=== PATIENT | male | born 1940 | race Caucasian/White ===

== ENCOUNTER 2022-07-04 07:12 | Observation (INO) ==
[2022-07-04] MEDS ORDERED: INFLUENZA VACCINE HIGH DOSE PF 65+ 0.7 ML SYR IM ONE (19:10)
[2022-07-04] MEDS ORDERED: ONDANSETRON INJ 2 MG/ML 2 ML VIAL IV PRN (19:52)
[2022-07-04] MEDS ORDERED: ACETAMINOPHEN 325 MG TAB PO PRN (19:52)
[2022-07-04] MEDS ORDERED: ALBUTEROL HFA 8 GM INHALER INH PRN (20:29)
[2022-07-04] MEDS ORDERED: PIPERACILLIN/TAZOBACTAM 3.375 GM in DEXTROSE 5% 100 ML IV ONE (20:30)
[2022-07-04 20:53] LABS: INR 1.2 (0.9-1.1); Prothrombin Time 12.4 Seconds (9.0-12.0)
[2022-07-04] MEDS: dilTIAZem HCL 120 MG CAPCR PO SCH (21:08)
[2022-07-04] MEDS: BUMETANIDE 1 MG TAB PO SCH (21:08)
[2022-07-04 21:10] LABS: Albumin Level 3.9 gm/dl (3.4-5.0); BUN Creatinine Ratio 20.9 (10-20); Bilirubin,Total 3.1 mg/dl (0.2-1.0); Calcium 8.5 mg/dl (8.5-10.1); Creatinine Clr Calc Pharmacy 27.8 ml/min; Est GFR (African American) 32.3 ml/min; Est GFR (Non-African American) 27.9 ml/min; Magnesium 2.4 mg/dl (1.7-2.4); Phosphorus 4.3 mg/dl (2.5-4.9); Potassium 3.8 mmol/L (3.5-5.1); Total Protein 5.9 gm/dl (6.0-8.3)
[2022-07-04 21:14] LABS: Basophils # (auto) 0.01 K/uL (0-0.2); Basophils % (auto) 0.1 %; Eosinophils # (auto) 0.01 K/uL (0-0.50); Eosinophils % (auto) 0.1 %; Hematocrit (blood only) 24.2 % (40.1-51.0); Hemoglobin 7.7 g/dl (14.0-18.0); Immature Granulocytes # (auto) 0.11 K/uL (0.00-0.02); Immature Granulocytes % (auto) 0.9 %; Lymphocytes # (auto) 0.24 K/uL (1.2-3.4); Mean Corpuscular Hemoglobin 25.5 pg (25.0-34.0); Mean Corpuscular Hgb Conc 31.8 g/dL (32.0-36.0); Mean Corpuscular Volume 80.1 fL (80.0-100.0); Mean Platelet Volume 9.9 fL (9.4-12.4); Monocytes # (auto) 0.98 K/uL (0.24-0.82); Monocytes % (auto) 8.1 %; Neutrophils # (auto) 10.73 K/uL (1.4-6.5); Neutrophils % (auto) 88.8 %; Nucleated RBC # (auto) 0.23 K/uL (0-0); Nucleated RBC % (auto) 1.9 %; Platelet Count 321 K/uL (130-400); RDW Coefficient of Variation 16.9 % (11.5-14.5); RDW Standard Deviation 49.1 fL (36.4-46.3); Red Blood Count 3.02 M/uL (4.63-6.08); White Blood Count 12.08 K/ul (4.8-10.8)
[2022-07-04 21:43] LABS: Troponin I High Sensitivity 176.4 pg/ml (0-20)
[2022-07-04] MEDS ORDERED: SODIUM CHLORIDE 0.9% 250 ML IV PRN (21:47)
[2022-07-04 22:24] LABS: Hypochromasia Present; Polychromasia 1+
--- NOTE | 2022-07-04 22:24 | History & Physical Report ---
Date of Service July 04, 2022 Assessment & Plan (1) Anemia: Plan: Surjit Hernandez is an 82yo male with history of atrial fibrillation on Xarelto anticoagulation who presented to outside facility with acute hypoxic respiratory failure in setting of removal of home oxygen. Found to have anemia with Hgb of 4.1. Patient does endorse several weeks of black, tarry stools as well as progressive SOB. He was transfused 3u PRBCs at outside facility prior to transfer with adequate response in H/H. Presently 7.7. -Telemetry monitoring -Maintain 2 large PIV -Will transfuse 1 additional unit given patient's elevation of troponin - consent signed, witness and in chart -Protonix 40mg IV BID -GI consultation appreciated -Repeat CBC in AM -Hold Xarelto (2) Elevated troponin: Plan: HS troponin elevated. Patient denies chest pain. Suspect supply-demand mismatch in setting of hypoxemia, possible CHF -Trend troponin -Check 2D echo in AM (3) Diverticulitis: Plan: CT of the abdomen obtained at outside facility revealed acute, uncomplicated diverticulitis. Patient denies abdominal pain, vomiting, fever. -Zosyn 3.375gm IV q 6 -Patient will need followup colonoscopy in 6-8 weeks (4) Atrial fibrillation: Plan: Patient V-paced at 73. On Diltiazem for rate control and Xarelto anticoagulation. -Continue Diltiazem at home dose - 240mg po qAM and 120mg po qHS -Hold Xarelto for now given suspicion for acute bleed -Monitor (5) CHF (congestive heart failure): Plan: Patient appears volume overloaded on CXR, elevation of BNP, elevation of troponin possibly secondary to strain as well -Bumex 1mg IV after transfusion and spot dosing IV as needed -Resume oral Bumex at home dose after -Monitor I/Os -Daily weights -Continue Spironolactone -Checking 2D echo in setting of elevated troponin (6) COPD (chronic obstructive pulmonary disease): Plan: SOB improved, no wheeze -Duonebs -Continue Albuterol PRN -Supplemental O2 (7) GERD (gastroesophageal reflux disease): Plan: Chronic. Patient denies abdominal pain or epigastric discomfort. -Protonix 40mg IV BID as above for concern for possible bleed (8) Depression: Plan: Chronic -Continue Duloxetine (9) CKD (chronic kidney disease): Plan: Elevation of BUN and Cr. Baseline appx 1.8 -Monitor renal function -Avoid nephrotoxic agents -Renal dosing where needed F/E/N - Heplock. Gentle diuresis. Monitor electrolytes. Clear liquid diet Ppx - SCDs Code - Full per discussion with patient Dispo - Admit to PCU Admission and Anticipated Discharge Date Admission Date: July 04, 2022 History of Present Illness Chief Complaint: transfer from outside facility complaint of anemia Primary Care Provider: Pepe Selby Surjit Hernandez is an 82yo male with history of atrial fibrillation on Xarelto anticoagulation, pacemaker in place, CHF, COPD - on home O2 4L for the last 2-4 weeks, GERD and CKD. Patient removed his oxygen earlier today and was unable to get it back on. He developed some respiratory distress and became confused and his called EMS. Per report, patient hypoxic by EMS with saturations in the 60's. He was placed on supplemental O2 with improvement in saturations and was taken to [facility]. Workup in [place] revealed elevated WBC of 13, Hgb of 4.1. HS-troponin of 116 and BNP of 7767. His Cr was 2.1 with baseline of approximately 1.8 Per ER - Tarry stools noted on exam, Heme POSITIVE He had a CT of the abdomen that revealed acute, uncomplicated sigmoid diverticulitis as well as a right pleural effusion with associated atelectasis and appearance of CHF. Covid and Influenza testing NEGATIVE Patient was transfused with 3 units of PRBCs and was given Lasix 20mg IV as well as Kdur 20mEq He was given Ciprofloxacin 400mg IV and Flagyl 500mg IV for finding of acute diverticulitis He was given Protonix 40mg IV for suspected GIB He was given a DuoNeb treatment and Solumedrol 125mg IV Patient was transferred to [facility] for GI evaluation, concern for GIB. Patient was placed in room 220-1. During my encounter he has no acute complaints, specifically denying fever, chest pain, palpitations, abdominal pain, nausea, vomiting and diarrhea. He denies dizziness, syncope or exertional symptoms. He reports his appetite is intact and he eats well at home. No epigastric pain or heartburn symptoms. He does report a chronic cough productive for non-purulent sputum as well as worsening shortness of breath over the last 2-3 weeks. No urinary complaints. He is hungry and is requesting something to eat. He does endorse several weeks (appx 3-4) of dark, tarry stools. He had a screening colonoscopy performed 3-4 years ago which he reports as normal. Allergies Allergy/AdvReac Type Severity Reaction Status Date / Time TANI Inhibitors AdvReac Mild cough Verified 07/04/22 22:24 Home Medications Medication Instructions Recorded Confirmed Type acetaminophen 500 mg tablet 500 mg PO Q6H PRN Pain 07/04/22 07/04/22 History albuterol sulfate 90 mcg/actuation 2 puff inhalation .Q4-6H PRN 07/04/22 07/04/22 History aerosol inhaler Shortness Of Breath ascorbic acid (vitamin C) 500 mg 500 mg PO DAILY 07/04/22 07/04/22 History tablet bumetanide 2 mg tablet 2 mg PO MOWEFR PRN Fluid Retention 07/04/22 07/04/22 History bumetanide 2 mg tablet 2 mg PO SUTUTHSA 07/04/22 07/04/22 History calcitriol 0.25 mcg capsule 0.25 mcg PO DAILY 07/04/22 07/04/22 History cholecalciferol (vitamin D3) 25 25 mcg PO DAILY 07/04/22 07/04/22 History mcg (1,000 unit) tablet (Vitamin D3) diltiazem HCl 120 mg 120 mg PO HS 07/04/22 07/04/22 History capsule,extended release 24 hr diltiazem HCl 120 mg 240 mg PO QAM 07/04/22 07/04/22 History capsule,extended release 24 hr duloxetine 60 mg capsule,delayed 60 mg PO QAM 07/04/22 07/04/22 History release fluticasone propionate 50 2 spray intranasal DAILY 07/04/22 07/04/22 History mcg/actuation nasal spray,suspension magnesium oxide 800 mg PO BID 07/04/22 07/04/22 History omeprazole 20 mg tablet,delayed 20 mg PO BID 07/04/22 07/04/22 History release potassium chloride 10 mEq 40 meq PO DAILY 07/04/22 07/04/22 History capsule,extended release rivaroxaban 20 mg tablet (Xarelto) 20 mg PO DAILY 07/04/22 07/04/22 History spironolactone 25 mg tablet 25 mg PO DAILY 07/04/22 07/04/22 History Past Med/Surg History Medical History (Updated 07/04/22 @ 22:37 by Polina Zimmer DO) Atrial fibrillation CHF (congestive heart failure) CKD (chronic kidney disease) COPD (chronic obstructive pulmonary disease) On home O2 4L Depression GERD (gastroesophageal reflux disease) Hiatal hernia Surgical History (Updated 07/04/22 @ 22:27 by Polina Zimmer DO) H/O neck surgery History of knee replacement History of thyroid surgery Pacemaker Family History (Updated 07/04/22 @ 22:27 by Polina Zimmer DO) Other Cancer Social History Smoking Status: Former smoker Hx Alcohol Use: Yes Alcohol type: beer, wine and hard liquor Hx Substance Use: No Preferred Language: Yoruba Communication Ability: Effective Hydrogen Operator Required: No Beliefs That Will Affect Care: None Current Living Situation: Spouse Other Information That Helps Us Care for You: No Feels Safe at Home: Yes Safety Concerns: Feels Safe At This Time Assistive Devices: Cane and Walker Review of Systems Review of Systems: All systems reviewed & are unremarkable except as noted in HPI & below Physical Exam Physical Exam: General: patient resting comfortably, NAD, non-toxic in appearance, AA&O x 4, NC in place Skin: warm, dry, intact, no rashes or lesions HEENT: NC/AT, PERRL, EOMI, anicteric sclera, conjunctiva without injection, external ear normal to inspection and nontender, nares patent, moist mucus membranes, dentition intact, no oropharyngeal lesions, neck supple, trachea midline, no LAD, no thyromegaly, no JVD Heart: +S1/S2, regular, no m/r/g, pacer in place left chest Lungs: equal air entry bilaterally, crackles in bilateral bases, no rhonchi/wheezes Abd: +BS, soft, NT/ND, no masses/organomegaly/ascites Ext: warm, 2+ pulses in UE/LE bilaterally, no clubbing/cyanosis or edema Neuro: nonfocal, patient AA&O x 4, speech intact, no facial droop, moving all extremities on command with equal strength 5/5 Results & Data Results & Data ([facility]) Vital Signs (Past 12 Hours) Vital Signs Temp Pulse Pulse Resp BP Pulse Ox O2 Del Method 07/04/22 18:59 77 07/04/22 19:00 Nasal Cannula 07/04/22 18:56 36.7 C 71 18 164/73 H 97 Nasal Cannula 07/04/22 18:47 36.7 C 71 18 164/73 H 97 Nasal Cannula O2 Flow Rate 07/04/22 18:59 07/04/22 19:00 5 07/04/22 18:56 5 07/04/22 18:47 5 Laboratory Results Laboratory Results WBC 12.08 K/ul (4.8-10.8) H 07/04/22 20: RBC 3.02 M/uL (4.63-6.08) L 07/04/22 20: Hgb 7.7 g/dl (14.0-18.0) L 07/04/22 20: Hct 24.2 % (40.1-51.0) L 07/04/22 20: MCV 80.1 fL (80.0-100.0) 07/04/22 20: MCH 25.5 pg (25.0-34.0) 07/04/22 20: MCHC 31.8 g/dL (32.0-36.0) L 07/04/22 20: RDW Std Deviation 49.1 fL (36.4-46.3) H 07/04/22 20: RDW Coeff of Dony 16.9 % (11.5-14.5) H 07/04/22 20: Plt Count 321 K/uL (130-400) 07/04/22 20: MPV 9.9 fL (9.4-12.4) 07/04/22 20: Immature Gran % (Auto) 0.9 % 07/04/22 20: Neut % (Auto) 88.8 % 07/04/22 20: Lymph % (Auto) 2.0 % 07/04/22 20: Alexander % (Auto) 8.1 % 07/04/22 20: Eos % (Auto) 0.1 % 07/04/22 20: Baso % (Auto) 0.1 % 07/04/22 20: Neut # (Auto) 10.73 K/uL (1.4-6.5) H 07/04/22 20: Lymph # (Auto) 0.24 K/uL (1.2-3.4) L 07/04/22 20:23 Alexander # (Auto) 0.98 K/uL (0.24-0.82) H 07/04/22 20: Eos # (Auto) 0.01 K/uL (0-0.50) 07/04/22 20:23 Baso # (Auto) 0.01 K/uL (0-0.2) 07/04/22 20: Immature Gran # (Auto) 0.11 K/uL (0.00-0.02) H 07/04/22 20: Absolute Nucleated RBC 0.23 K/uL (0-0) H 07/04/22 20: Nucleated RBC % (auto) 1.9 % 07/04/22 20: Polychromasia 1+ 07/04/22 20: Hypochromasia Present 07/04/22 20: PT 12.4 Seconds (9.0-12.0) H 07/04/22 20: INR 1.2 (0.9-1.1) H 07/04/22 20: Sodium 140 mmol/L (136-145) 07/04/22 20: Potassium 3.8 mmol/L (3.5-5.1) 07/04/22 20: Chloride 98 mmol/L (98-107) 07/04/22 20: Carbon Dioxide 34 mmol/L (21-32) H 07/04/22 20: Anion Gap 8 (3-11) 07/04/22 20: BUN 44 mg/dl (6-23) H 07/04/22 20: Creatinine 2.11 mg/dl (0.6-1.4) H 07/04/22 20: Est Cr Clr Drug Dosing 27.8 ml/min 07/04/22 20:23 Est GFR ( Amer) 32.3 ml/min 07/04/22 20: Est GFR (Non-Af Amer) 27.9 ml/min 07/04/22 20: BUN/Creatinine Ratio 20.9 (10-20) H 07/04/22 20: Glucose 138 mg/dl (70-99(Fasting)) H 07/04/22 20:23 Calcium 8.5 mg/dl (8.5-10.1) 07/04/22 20:23 Phosphorus 4.3 mg/dl (2.5-4.9) 07/04/22 20:23 Magnesium 2.4 mg/dl (1.7-2.4) 07/04/22 20:23 Total Bilirubin 3.1 mg/dl (0.2-1.0) H 07/04/22 20:23 AST 22 U/L (13-39) 07/04/22 20:23 ALT 34 U/L (7-52) 07/04/22 20:23 Alkaline Phosphatase 51 U/L (34-104) 07/04/22 20:23 Troponin I High Sens 176.4 pg/ml (0-20) H* 07/04/22 20:23 B-Natriuretic Peptide 1053 pg/ml (0-100) H 07/04/22 20:23 Total Protein 5.9 gm/dl (6.0-8.3) L 07/04/22 20:23 Albumin 3.9 gm/dl (3.4-5.0) 07/04/22 20:23 Globulin 2.0 gm/dl (2.5-4.0) L 07/04/22 20:23 Albumin/Globulin Ratio 2.0 (0.9-2) 07/04/22 20:23 Diagnostic Findings CXR - by my interpretation - image with appearance of pulmonary edema, ECG Additional Comments: EKG with V paced rhythm at 73bpm, PVCs, no acute ischemic changes Code Status & VTE Plan VTE Prophylaxis Plan VTE Prophylaxis will be ordered: Yes PG Care Time/CCT Total # of Minutes Spent Total Time Spent with Patient: Total time spent is greater than 50% in coordination of care (as documented) at patient's floor/unit and/or counseling patient: Coding Level of Care Code 03136 Initial Inpt Care Lvl 3 Diagnoses Anemia D64.9 Elevated troponin R77.8 Diverticulitis K57.92 Atrial fibrillation I48.91 CHF (congestive heart failure) I50.9 COPD (chronic obstructive pulmonary disease) J44.9 GERD (gastroesophageal reflux disease) K21.9 Depression F32.A CKD (chronic kidney disease) N18.9
[2022-07-04] MEDS ORDERED: ALBUT/IPRATROP 3MG/0.5MG NEB 3 ML VIAL NEB PRN (22:43)
[2022-07-04] MEDS ORDERED: PANTOprazole 40 MG in SYRINGE 0 ML IV ONE (22:45)
[2022-07-04] MEDS ORDERED: BUMETANIDE 1 MG in SYRINGE 0 ML IV ONE (23:00)
[2022-07-05] MEDS: MELATONIN 3 MG TAB PO PRN (00:56)
[2022-07-05] MEDS ORDERED: Nursing to Pharmacy Communication SCH (01:45)
[2022-07-05] MEDS: PIPERACILLIN/TAZOBACTAM 3.375 GM in DEXTROSE 5% 100 ML IV SCH ×3 (03:09→20:23)
--- NOTE | 2022-07-05 07:06 | XRay Report ---
XR chest 1V portable CLINICAL HISTORY: admission TECHNIQUE: Single frontal radiograph of the chest was obtained. Comparison: Comparison is made to chest radiograph 06/09/2012 FINDINGS: Implanted pacemaker is seen. Cardiomegaly is noted. Prominence and cephalization of the vasculature i s seen. No evidence of pleural effusion or pneumothorax. IMPRESSION: Cardiomegaly with mild pulmonary edema. ACT 112: Negative or not required by law. Electronically signed by: Hans Garibay M.D. 07/05/2022 7:04 AM
--- NOTE | 2022-07-05 08:14 | Electrocardiogram Report ---
Test Reason : Blood Pressure : / mmHG Vent. Rate : 073 BPM Atrial Rate : 093 BPM P-R Int : 000 ms QRS Dur : 136 ms QT Int : 438 ms P-R-T Axes : 000 144 208 degrees QTc Int : 482 ms Poor data quality, interpretation may be adversely affected Ventricular-paced rhythm with occasional Premature ventricular complexes Underlying rhythm likely Atrial fibrillation Abnormal ECG When compared with ECG of 04-JUL-2022 21:26, Electronic ventricular pacemaker now present Confirmed by Luis Daniel Munoz ([id number]) on 07/05/2022 8:14:15 AM Referred By: Polina Zimmer Confirmed By:Luis Daniel Munoz
[2022-07-05] MEDS: SPIRONOLACTONE 25 MG TAB PO SCH (08:26)
[2022-07-05] MEDS: PANTOprazole 40 MG in SYRINGE 0 ML IV SCH ×2 (08:26→20:23)
[2022-07-05] MEDS: CALCITRIOL 0.25 MCG CAPSULE PO SCH (08:26)
[2022-07-05] MEDS: dilTIAZem HCL 240 MG CAPCR PO SCH (08:26)
[2022-07-05] MEDS: DULoxetine HCL 60 MG CAP PO SCH (08:26)
[2022-07-05] MEDS: FLUTICASONE PROPIONATE NA SPR 16 GM BTL SCH (08:27)
[2022-07-05] MEDS ORDERED: PANTOprazole 40 MG TAB PO SCH (09:00)
[2022-07-05 09:16] LABS: Basophils # (auto) 0.01 K/uL (0-0.2); Basophils % (auto) 0.1 %; Hematocrit (blood only) 25.1 % (40.1-51.0); Hemoglobin 8.1 g/dl (14.0-18.0); Immature Granulocytes # (auto) 0.17 K/uL (0.00-0.02); Immature Granulocytes % (auto) 1.1 %; Lymphocytes % (auto) 2.5 %; Mean Corpuscular Hemoglobin 25.7 pg (25.0-34.0); Mean Corpuscular Hgb Conc 32.3 g/dL (32.0-36.0); Mean Corpuscular Volume 79.7 fL (80.0-100.0); Mean Platelet Volume 9.5 fL (9.4-12.4); Monocytes # (auto) 1.45 K/uL (0.24-0.82); Neutrophils % (auto) 87.3 %; Nucleated RBC # (auto) 0.08 K/uL (0-0); Nucleated RBC % (auto) 0.5 %; Platelet Count 284 K/uL (130-400); RDW Coefficient of Variation 16.4 % (11.5-14.5); RDW Standard Deviation 46.7 fL (36.4-46.3); Red Blood Count 3.15 M/uL (4.63-6.08); White Blood Count 16.03 K/ul (4.8-10.8)
--- NOTE | 2022-07-05 10:49 | XCELERA ---
[id number]
[2022-07-05 11:05] LABS: Albumin Level 3.6 gm/dl (3.4-5.0); BUN Creatinine Ratio 19.7 (10-20); Bilirubin Direct 0.5 mg/dl (0-0.2); Bilirubin,Total 1.6 mg/dl (0.2-1.0); Calcium 8.3 mg/dl (8.5-10.1); Creatinine Clr Calc Pharmacy 32.1 ml/min; Est GFR (African American) 34.9 ml/min; Est GFR (Non-African American) 30.1 ml/min; Globulin 1.8 gm/dl (2.5-4.0); Potassium 3.2 mmol/L (3.5-5.1); Total Protein 5.4 gm/dl (6.0-8.3)
--- NOTE | 2022-07-05 15:46 | Gastrointestinal Consultation ---
Date of Consultation July 05, 2022 Assessment & Plan (1) Anemia: Fairly significant anemia on xarelto. He took a dose yesterday so we will plan EGD. He has no reason to have bleeding other than his diverticulitis but would expect more red blood with that. Discussed procedure and risks for eGD with him, he agrees. I will let him have an early clear liquid breakfast. (2) Diverticulitis: On treatment per Dr. Zimmer History of Present Illness Reason for Consultation: anemia Requesting Physician: Polina Zimmer Attending Physician: Layo Lee DO History of Present Illness 82 year old man admitted with SOB and noted to have hemoglobin of 4.1. He has been having black stools for three weeks he says. He takes xarelto but denies taking NSAIDs. He had no abdominal pain. He denies heartburn or indigestion. He does take omeprazole for a "hiatal hernia". He had an EGD "2-3 years ago" when he had his last colonoscopy. He has an EGD set up for next week as an outpatient that he arranged of his own volition. He was incidentally diagnosed with acute diverticulitis on CT on admit although he denies pain related to that. Allergies Allergy/AdvReac Type Severity Reaction Status Date / Time TANI Inhibitors AdvReac Mild cough Verified 07/04/22 22:24 Home Medications Medication Instructions Recorded Confirmed Type acetaminophen 500 mg tablet 500 mg PO Q6H PRN Pain 07/04/22 07/04/22 History albuterol sulfate 90 mcg/actuation 2 puff inhalation .Q4-6H PRN 07/04/22 07/04/22 History aerosol inhaler Shortness Of Breath ascorbic acid (vitamin C) 500 mg 500 mg PO DAILY 07/04/22 07/04/22 History tablet bumetanide 2 mg tablet 2 mg PO MOWEFR PRN Fluid Retention 07/04/22 07/04/22 History bumetanide 2 mg tablet 2 mg PO SUTUTHSA 07/04/22 07/04/22 History calcitriol 0.25 mcg capsule 0.25 mcg PO DAILY 07/04/22 07/04/22 History cholecalciferol (vitamin D3) 25 25 mcg PO DAILY 07/04/22 07/04/22 History mcg (1,000 unit) tablet (Vitamin D3) diltiazem HCl 120 mg 120 mg PO HS 07/04/22 07/04/22 History capsule,extended release 24 hr diltiazem HCl 120 mg 240 mg PO QAM 07/04/22 07/04/22 History capsule,extended release 24 hr duloxetine 60 mg capsule,delayed 60 mg PO QAM 07/04/22 07/04/22 History release fluticasone propionate 50 2 spray intranasal DAILY 07/04/22 07/04/22 History mcg/actuation nasal spray,suspension magnesium oxide 800 mg PO BID 07/04/22 07/04/22 History omeprazole 20 mg tablet,delayed 20 mg PO BID 07/04/22 07/04/22 History release potassium chloride 10 mEq 40 meq PO DAILY 07/04/22 07/04/22 History capsule,extended release rivaroxaban 20 mg tablet (Xarelto) 20 mg PO DAILY 07/04/22 07/04/22 History spironolactone 25 mg tablet 25 mg PO DAILY 07/04/22 07/04/22 History Patient History Medical History Atrial fibrillation CHF (congestive heart failure) CKD (chronic kidney disease) COPD (chronic obstructive pulmonary disease) On home O2 4L Depression GERD (gastroesophageal reflux disease) Hiatal hernia Surgical History H/O neck surgery History of knee replacement History of thyroid surgery Pacemaker Family History Other Cancer Social History Smoking Status: Former smoker Hx Alcohol Use: Yes Alcohol type: beer, wine and hard liquor Hx Substance Use: No Preferred Language: Kosovan Communication Ability: Effective Manager Code Required: No Beliefs That Will Affect Care: None marital status: Current Living Situation: Spouse Other Information That Helps Us Care for You: No Feels Safe at Home: Yes Safety Concerns: Feels Safe At This Time Assistive Devices: Cane, Oxygen - Continuous and Walker Review of Systems Review of Systems: All systems reviewed & are unremarkable except as noted in HPI & below Physical Exam Constitutional: WD/WN, vitals as above no acute distress Eyes: PERRL, conjunctivae normal, anicteric sclerae ENMT: external ear and nose normal, oropharynx normal Neck: trachea midline, no thyromegaly Respiratory: normal respiratory effort, lungs clear to auscultation Cardiovascular: RRR, no murmur, no edema Gastrointestinal (Abdomen): normal bowel sounds, soft, nontender, no hepatosplenomegaly Musculoskeletal: Extremities: no cyanosis and no clubbing Skin: no rashes, warm and dry Neurologic: PERRL, EOMI, accommodation nl, no face palsy, no dysarthria Psychiatric: Orientation: alert and oriented x 3 Results & Data ([facility]) Vital Signs (Past 12 Hours) Vital Signs Temp Pulse Pulse Resp BP BP BP 07/05/22 14:47 36.6 C 70 18 157/71 H 07/05/22 10:28 36.5 C 68 18 165/59 H 07/05/22 07:35 71 07/05/22 07:35 07/05/22 06:59 36.5 C 68 18 160/65 H 07/05/22 04:44 36.5 C 70 20 139/65 07/05/22 04:45 36.5 C 70 20 139/65 07/05/22 04:36 36.6 C 70 18 157/72 H Pulse Ox O2 Del Method O2 Flow Rate 07/05/22 14:47 97 Nasal Cannula 3 07/05/22 10:28 98 Nasal Cannula 4 07/05/22 07:35 07/05/22 07:35 Nasal Cannula 5 07/05/22 06:59 99 Nasal Cannula 5 07/05/22 04:44 07/05/22 04:45 07/05/22 04:36 Laboratory Results 07/05/22 07/05/22 07/05/22 Range/Units 10:20 10:20 07:24 WBC 16.03 H (4.8-10.8) K/ul RBC 3.15 L (4.63-6.08) M/uL Hgb 8.1 L (14.0-18.0) g/dl Hct 25.1 L (40.1-51.0) % MCV 79.7 L (80.0-100.0) fL MCH 25.7 (25.0-34.0) pg MCHC 32.3 (32.0-36.0) g/dL RDW Std Deviation 46.7 H (36.4-46.3) fL RDW Coeff of Dony 16.4 H (11.5-14.5) % Plt Count 284 (130-400) K/uL MPV 9.5 (9.4-12.4) fL Immature Gran % (Auto) 1.1 % Neut % (Auto) 87.3 % Lymph % (Auto) 2.5 % [place] % (Auto) 9.0 % Eos % (Auto) 0.0 % Baso % (Auto) 0.1 % Neut # (Auto) 14.00 H (1.4-6.5) K/uL Lymph # (Auto) 0.40 L (1.2-3.4) K/uL [place] # (Auto) 1.45 H (0.24-0.82) K/uL Eos # (Auto) 0.00 (0-0.50) K/uL Baso # (Auto) 0.01 (0-0.2) K/uL Immature Gran # (Auto) 0.17 H (0.00-0.02) K/uL Absolute Nucleated RBC 0.08 H (0-0) K/uL Nucleated RBC % (auto) 0.5 % Polychromasia Hypochromasia PT (9.0-12.0) Seconds INR (0.9-1.1) Sodium 142 (136-145) mmol/L Potassium 3.2 L (3.5-5.1) mmol/L Chloride 99 (98-107) mmol/L Carbon Dioxide 37 H (21-32) mmol/L Anion Gap 6 (3-11) BUN 39 H (6-23) mg/dl Creatinine 1.98 H (0.6-1.4) mg/dl Est Cr Clr Drug Dosing 32.1 ml/min Est GFR ( Amer) 34.9 ml/min Est GFR (Non-Af Amer) 30.1 ml/min BUN/Creatinine Ratio 19.7 (10-20) Glucose 122 H (70-99(Fasting)) mg/dl Calcium 8.3 L (8.5-10.1) mg/dl Phosphorus (2.5-4.9) mg/dl Magnesium (1.7-2.4) mg/dl Total Bilirubin 1.6 H (0.2-1.0) mg/dl Direct Bilirubin 0.5 H (0-0.2) mg/dl AST 15 (13-39) U/L ALT 29 (7-52) U/L Alkaline Phosphatase 46 (34-104) U/L Troponin I High Sens 195.5 H* (0-20) pg/ml B-Natriuretic Peptide (0-100) pg/ml Total Protein 5.4 L (6.0-8.3) gm/dl Albumin 3.6 (3.4-5.0) gm/dl Globulin 1.8 L (2.5-4.0) gm/dl Albumin/Globulin Ratio 2.0 (0.9-2) Blood Type Blood Type Recheck Antibody Screen Crossmatch 07/05/22 07/04/22 07/04/22 Range/Units 07:21 23:03 20:23 WBC (4.8-10.8) K/ul RBC (4.63-6.08) M/uL Hgb (14.0-18.0) g/dl Hct (40.1-51.0) % MCV (80.0-100.0) fL MCH (25.0-34.0) pg MCHC (32.0-36.0) g/dL RDW Std Deviation (36.4-46.3) fL RDW Coeff of Dony (11.5-14.5) % Plt Count (130-400) K/uL MPV (9.4-12.4) fL Immature Gran % (Auto) % Neut % (Auto) % Lymph % (Auto) % [place] % (Auto) % Eos % (Auto) % Baso % (Auto) % Neut # (Auto) (1.4-6.5) K/uL Lymph # (Auto) (1.2-3.4) K/uL [place] # (Auto) (0.24-0.82) K/uL Eos # (Auto) (0-0.50) K/uL Baso # (Auto) (0-0.2) K/uL Immature Gran # (Auto) (0.00-0.02) K/uL Absolute Nucleated RBC (0-0) K/uL Nucleated RBC % (auto) % Polychromasia Hypochromasia PT (9.0-12.0) Seconds INR (0.9-1.1) Sodium (136-145) mmol/L Potassium (3.5-5.1) mmol/L Chloride (98-107) mmol/L Carbon Dioxide (21-32) mmol/L Anion Gap (3-11) BUN (6-23) mg/dl Creatinine (0.6-1.4) mg/dl Est Cr Clr Drug Dosing ml/min Est GFR ( Amer) ml/min Est GFR (Non-Af Amer) ml/min BUN/Creatinine Ratio (10-20) Glucose (70-99(Fasting)) mg/dl Calcium (8.5-10.1) mg/dl Phosphorus (2.5-4.9) mg/dl Magnesium (1.7-2.4) mg/dl Total Bilirubin (0.2-1.0) mg/dl Direct Bilirubin (0-0.2) mg/dl AST (13-39) U/L ALT (7-52) U/L Alkaline Phosphatase (34-104) U/L Troponin I High Sens 180.7 H* (0-20) pg/ml B-Natriuretic Peptide (0-100) pg/ml Total Protein (6.0-8.3) gm/dl Albumin (3.4-5.0) gm/dl Globulin (2.5-4.0) gm/dl Albumin/Globulin Ratio (0.9-2) Blood Type A Positive Blood Type Recheck A Positive Antibody Screen NEGATIVE Crossmatch See Detail 07/04/22 07/04/22 07/04/22 Range/Units 20:23 20:23 20:23 WBC (4.8-10.8) K/ul RBC (4.63-6.08) M/uL Hgb (14.0-18.0) g/dl Hct (40.1-51.0) % MCV (80.0-100.0) fL MCH (25.0-34.0) pg MCHC (32.0-36.0) g/dL RDW Std Deviation (36.4-46.3) fL RDW Coeff of Dony (11.5-14.5) % Plt Count (130-400) K/uL MPV (9.4-12.4) fL Immature Gran % (Auto) % Neut % (Auto) % Lymph % (Auto) % [place] % (Auto) % Eos % (Auto) % Baso % (Auto) % Neut # (Auto) (1.4-6.5) K/uL Lymph # (Auto) (1.2-3.4) K/uL [place] # (Auto) (0.24-0.82) K/uL Eos # (Auto) (0-0.50) K/uL Baso # (Auto) (0-0.2) K/uL Immature Gran # (Auto) (0.00-0.02) K/uL Absolute Nucleated RBC (0-0) K/uL Nucleated RBC % (auto) % Polychromasia Hypochromasia PT 12.4 H (9.0-12.0) Seconds INR 1.2 H (0.9-1.1) Sodium 140 (136-145) mmol/L Potassium 3.8 (3.5-5.1) mmol/L Chloride 98 (98-107) mmol/L Carbon Dioxide 34 H (21-32) mmol/L Anion Gap 8 (3-11) BUN 44 H (6-23) mg/dl Creatinine 2.11 H (0.6-1.4) mg/dl Est Cr Clr Drug Dosing 27.8 ml/min Est GFR ( Amer) 32.3 ml/min Est GFR (Non-Af Amer) 27.9 ml/min BUN/Creatinine Ratio 20.9 H (10-20) Glucose 138 H (70-99(Fasting)) mg/dl Calcium 8.5 (8.5-10.1) mg/dl Phosphorus 4.3 (2.5-4.9) mg/dl Magnesium 2.4 (1.7-2.4) mg/dl Total Bilirubin 3.1 H (0.2-1.0) mg/dl Direct Bilirubin (0-0.2) mg/dl AST 22 (13-39) U/L ALT 34 (7-52) U/L Alkaline Phosphatase 51 (34-104) U/L Troponin I High Sens 176.4 H* (0-20) pg/ml B-Natriuretic Peptide 1053 H (0-100) pg/ml Total Protein 5.9 L (6.0-8.3) gm/dl Albumin 3.9 (3.4-5.0) gm/dl Globulin 2.0 L (2.5-4.0) gm/dl Albumin/Globulin Ratio 2.0 (0.9-2) Blood Type Blood Type Recheck Antibody Screen Crossmatch 07/04/22 Range/Units 20:23 WBC 12.08 H (4.8-10.8) K/ul RBC 3.02 L (4.63-6.08) M/uL Hgb 7.7 L (14.0-18.0) g/dl Hct 24.2 L (40.1-51.0) % MCV 80.1 (80.0-100.0) fL MCH 25.5 (25.0-34.0) pg MCHC 31.8 L (32.0-36.0) g/dL RDW Std Deviation 49.1 H (36.4-46.3) fL RDW Coeff of Dony 16.9 H (11.5-14.5) % Plt Count 321 (130-400) K/uL MPV 9.9 (9.4-12.4) fL Immature Gran % (Auto) 0.9 % Neut % (Auto) 88.8 % Lymph % (Auto) 2.0 % [place] % (Auto) 8.1 % Eos % (Auto) 0.1 % Baso % (Auto) 0.1 % Neut # (Auto) 10.73 H (1.4-6.5) K/uL Lymph # (Auto) 0.24 L (1.2-3.4) K/uL [place] # (Auto) 0.98 H (0.24-0.82) K/uL Eos # (Auto) 0.01 (0-0.50) K/uL Baso # (Auto) 0.01 (0-0.2) K/uL Immature Gran # (Auto) 0.11 H (0.00-0.02) K/uL Absolute Nucleated RBC 0.23 H (0-0) K/uL Nucleated RBC % (auto) 1.9 % Polychromasia 1+ Hypochromasia Present PT (9.0-12.0) Seconds INR (0.9-1.1) Sodium (136-145) mmol/L Potassium (3.5-5.1) mmol/L Chloride (98-107) mmol/L Carbon Dioxide (21-32) mmol/L Anion Gap (3-11) BUN (6-23) mg/dl Creatinine (0.6-1.4) mg/dl Est Cr Clr Drug Dosing ml/min Est GFR ( Amer) ml/min Est GFR (Non-Af Amer) ml/min BUN/Creatinine Ratio (10-20) Glucose (70-99(Fasting)) mg/dl Calcium (8.5-10.1) mg/dl Phosphorus (2.5-4.9) mg/dl Magnesium (1.7-2.4) mg/dl Total Bilirubin (0.2-1.0) mg/dl Direct Bilirubin (0-0.2) mg/dl AST (13-39) U/L ALT (7-52) U/L Alkaline Phosphatase (34-104) U/L Troponin I High Sens (0-20) pg/ml B-Natriuretic Peptide (0-100) pg/ml Total Protein (6.0-8.3) gm/dl Albumin (3.4-5.0) gm/dl Globulin (2.5-4.0) gm/dl Albumin/Globulin Ratio (0.9-2) Blood Type Blood Type Recheck Antibody Screen Crossmatch Diagnostic Findings Chest X-Ray 07/04/22 19:57 XR chest 1V portable CLINICAL HISTORY: admission TECHNIQUE: Single frontal radiograph of the chest was obtained. Comparison: Comparison is made to chest radiograph 06/09/2012 FINDINGS: Implanted pacemaker is seen. Cardiomegaly is noted. Prominence and cephalization of the vasculature is seen. No evidence of pleural effusion or pneumothorax. IMPRESSION: Cardiomegaly with mild pulmonary edema. ACT 112: Negative or not required by law. Electronically signed by: Hans Garibay M.D. 07/05/2022 7:04 AM
--- NOTE | 2022-07-05 16:10 | Hospitalist Progress Note ---
Date of Service July 05, 2022 Assessment & Plan (1) Anemia: Plan: Surjit Hernandez is an 82yo male with history of atrial fibrillation on Xarelto anticoagulation who presented to outside facility with acute hypoxic respiratory failure in setting of removal of home oxygen. Found to have anemia with Hgb of 4.1. Patient does endorse several weeks of black, tarry stools as well as progressive SOB. He was transfused 3u PRBCs at outside facility prior to transfer with adequate response in H/H. Presently 8.1 -Telemetry monitoring -Maintain 2 large PIV -Will transfuse 1 additional unit given patient's elevation of troponin - consent signed, witness and in chart, given overnight. Hgb at 8.1 -Protonix 40mg IV BID -GI consultation appreciated- Will perform EGD to evaluate for upper GI bleed -Repeat CBC in AM -Hold Xarelto (2) Elevated troponin: Plan: HS troponin elevated. Patient denies chest pain. Suspect supply-demand mismatch in setting of hypoxemia, possible CHF -Trend troponin, peaked at 196 -Echo shows: "Ejection fraction of 45 to 50% with mild global hypokinesis with no focal wall motion abnormalities. Moderate left ventricular hypertrophy. Moderately dilated right heart with evidence of right ventricular hypertrophy and preserved systolic function. Mild aortic stenosis/regurgitation. Mild pulmonic insufficiency with normal pulmonary artery end-diastolic pressure. Moderate to severe mitral regurgitation with moderately dilated left atrium. Moderate tricuspid regurgitation with severe pulmonary hypertension and elevated central venous pressure." (3) Diverticulitis: Plan: CT of the abdomen obtained at outside facility revealed acute, uncomplicated diverticulitis. Patient denies abdominal pain, vomiting, fever. -Zosyn 3.375gm IV q 8...will convert to oral therapy post EGD -Patient will need followup colonoscopy in 6-8 weeks (4) Atrial fibrillation: Plan: Patient V-paced at 73. On Diltiazem for rate control and Xarelto anticoagulation. -Continue Diltiazem at home dose - 240mg po qAM and 120mg po qHS -Hold Xarelto for now given suspicion for acute bleed -Monitor (5) CHF (congestive heart failure): Plan: Patient appears volume overloaded on CXR, elevation of BNP, elevation of troponin possibly secondary to strain as well -Bumex 1mg IV after transfusion and spot dosing IV as needed -Resume oral Bumex at home dose after -Monitor I/Os -Daily weights -Continue Spironolactone -see echo results above (6) COPD (chronic obstructive pulmonary disease): Plan: SOB improved, no wheeze -Duonebs -Continue Albuterol PRN -Supplemental O2 (7) GERD (gastroesophageal reflux disease): Plan: Chronic. Patient denies abdominal pain or epigastric discomfort. -Protonix 40mg IV BID as above for concern for possible bleed (8) Depression: Plan: Chronic -Continue Duloxetine (9) CKD (chronic kidney disease): Plan: Elevation of BUN and Cr. Baseline appx 1.8 -Monitor renal function -Avoid nephrotoxic agents -Renal dosing where needed F/E/N - Heplock. Gentle diuresis. Monitor electrolytes. Clear liquid diet Ppx - SCDs, chemoprophylaxis contraindicated. Code - Full per discussion with patient Dispo - Admit to PCU Admission and Anticipated Discharge Date Admission Date: July 04, 2022 Supervising Physician Co-Signing Physician Notes I personally examined the patient and verified all garcia points of history and ex am, discussed case, and agree with decision making with Dr Vanegas Ongoing melena. No chest pain or shortness of breath. No weak or lightheaded. Vitals noted, in general he is awake and alert pleasant no distress. HEENT normocephalic atraumatic mucous membranes moist. Breathing unlabored no accessory muscle use good effort. Skin shows no rashes no pallor or icterus. Neuro without focal deficits. GI bleeding with acute blood loss anemiatransfused 4 unitshemoglobin now stable in the low to mid 8 range. Does seem to have ongoing bleeding given ongoing melena, hemodynamically stable. Follow closely. Await GI inputanticipate endoscopic work-up Otherwise as above Subjective Patient seen at bedside this morning. No acute events reported overnight. Patient received 4 units total in the past 24 hours of packed red blood cells. Denies any shortness of breath or chest pain. Reports he is overall feeling well but is simply hungry requesting food. States that for the past 3 weeks he has been having "black stools". Denies any bright red blood. Denies any epigastric/abdominal pain. Eating and drinking without difficulty. Otherwise no other complaints at this time. Review of Systems Review of Systems: All systems reviewed & are unremarkable except as noted in HPI & below Physical Exam Constitutional: WD/WN, vitals as above Eyes: + anicteric sclerae Neck: trachea midline, no thyromegaly Respiratory: normal respiratory effort, lungs clear to auscultation Cardiovascular: RRR, no murmur, no edema Gastrointestinal (Abdomen): normal bowel sounds, soft, nontender, no hepatosplenomegaly Musculoskeletal: Head/Neck/Chest: normocephalic and head atraumatic Skin: no rashes, warm and dry Neurologic: moves all extremities Psychiatric: A+Ox3, euthymic affect Results & Data Results & Data ([facility]) Vital Signs (Past 12 Hours) Vital Signs Temp Pulse Pulse Resp BP BP BP 07/05/22 14:47 36.6 C 70 18 157/71 H 07/05/22 10:28 36.5 C 68 18 165/59 H 07/05/22 07:35 71 07/05/22 07:35 07/05/22 06:59 36.5 C 68 18 160/65 H 07/05/22 04:44 36.5 C 70 20 139/65 07/05/22 04:45 36.5 C 70 20 139/65 07/05/22 04:36 36.6 C 70 18 157/72 H Pulse Ox O2 Del Method O2 Flow Rate 07/05/22 14:47 97 Nasal Cannula 3 07/05/22 10:28 98 Nasal Cannula 4 07/05/22 07:35 07/05/22 07:35 Nasal Cannula 5 07/05/22 06:59 99 Nasal Cannula 5 07/05/22 04:44 07/05/22 04:45 07/05/22 04:36
[2022-07-05 18:36] LABS: Hematocrit (blood only) 26.7 % (40.1-51.0); Hemoglobin 8.5 g/dl (14.0-18.0)
--- NOTE | 2022-07-05 19:11 | Billing Data ---
Date of Service July 05, 2022 Coding Level of Care Code 61560 Subseq Hosp Care Lvl 3
[2022-07-05] MEDS: dilTIAZem HCL 120 MG CAPCR PO SCH (20:24)
[2022-07-06] MEDS: PIPERACILLIN/TAZOBACTAM 3.375 GM in DEXTROSE 5% 100 ML IV SCH ×3 (03:25→20:45)
[2022-07-06] MEDS: DULoxetine HCL 60 MG CAP PO SCH (08:06)
[2022-07-06] MEDS: dilTIAZem HCL 240 MG CAPCR PO SCH (08:06)
[2022-07-06] MEDS: SPIRONOLACTONE 25 MG TAB PO SCH (08:06)
[2022-07-06] MEDS: CALCITRIOL 0.25 MCG CAPSULE PO SCH (08:06)
[2022-07-06] MEDS: PANTOprazole 40 MG in SYRINGE 0 ML IV SCH ×2 (08:06→19:51)
--- NOTE | 2022-07-06 08:09 | Anesthesiology Consultation ---
Date of Service July 06, 2022 Assessment & Plan (1) Encounter for pre-operative examination: Chart Review Chart Review: Acceptable Risk for Surgery, Patient NOT seen in Pre Admission Testing and temporary data entry clerk initiated Consults Requested none History Surgery Operation Date: 07/06/22 16:30 Proposed Procedures p Esophagogastroduodenoscopy Dr. Avitia - Junior Avitia Jr, MD Height/Weight Height: 5 ft 11 in Weight: 86.4 kg Allergies Allergy/AdvReac Type Severity Reaction Status Date / Time TANI Inhibitors AdvReac Mild cough Verified 07/04/22 22:24 Medications Home Medications Medication Instructions Recorded Confirmed Last Taken acetaminophen 500 mg tablet 500 mg PO Q6H PRN Pain 07/04/22 07/04/22 Unknown albuterol sulfate 90 mcg/actuation 2 puff inhalation .Q4-6H PRN 07/04/22 07/04/22 Unknown aerosol inhaler Shortness Of Breath ascorbic acid (vitamin C) 500 mg 500 mg PO DAILY 07/04/22 07/04/22 07/04/22 tablet bumetanide 2 mg tablet 2 mg PO MOWEFR PRN Fluid Retention 07/04/22 07/04/22 Unknown bumetanide 2 mg tablet 2 mg PO SUTUTHSA 07/04/22 07/04/22 07/04/22 calcitriol 0.25 mcg capsule 0.25 mcg PO DAILY 07/04/22 07/04/22 07/04/22 cholecalciferol (vitamin D3) 25 25 mcg PO DAILY 07/04/22 07/04/22 07/04/22 mcg (1,000 unit) tablet (Vitamin D3) diltiazem HCl 120 mg 120 mg PO HS 07/04/22 07/04/22 07/03/22 capsule,extended release 24 hr diltiazem HCl 120 mg 240 mg PO QAM 07/04/22 07/04/22 07/04/22 capsule,extended release 24 hr duloxetine 60 mg capsule,delayed 60 mg PO QAM 07/04/22 07/04/22 07/04/22 release fluticasone propionate 50 2 spray intranasal DAILY 07/04/22 07/04/22 07/04/22 mcg/actuation nasal spray,suspension magnesium oxide 800 mg PO BID 07/04/22 07/04/22 07/04/22 omeprazole 20 mg tablet,delayed 20 mg PO BID 07/04/22 07/04/22 07/04/22 release potassium chloride 10 mEq 40 meq PO DAILY 07/04/22 07/04/22 07/03/22 capsule,extended release rivaroxaban 20 mg tablet (Xarelto) 20 mg PO DAILY 07/04/22 07/04/22 07/04/22 spironolactone 25 mg tablet 25 mg PO DAILY 07/04/22 07/04/22 07/04/22 Active Medications Generic Name Dose Route Start Last Admin Trade Name Freq PRN Reason Stop Dose Admin Albuterol 3 ml 07/04/22 22:43 07/05/22 00:27 Albut/Ipratrop 3mg/0.5mg Neb 3 Ml Vial NEB 08/03/22 22:59 3 ml Q4R PRN Administration Shortness Of Breath Protocol Bumetanide 2 mg 07/04/22 20:30 07/04/22 21:08 Bumetanide 1 Mg Tab PO 08/03/22 20:29 2 mg [id number] GÓMEZ Administration Calcitriol 0.25 mcg 07/05/22 09:00 07/06/22 08:06 Calcitriol 0.25 Mcg Capsule PO 08/04/22 08:59 0.25 mcg DAILY GÓMEZ Administration Diltiazem HCl 120 mg 07/04/22 21:00 07/05/22 20:24 Diltiazem Hcl 120 Mg Capcr PO 08/03/22 20:59 120 mg HS GÓMEZ Administration Diltiazem HCl 240 mg 07/05/22 09:00 07/06/22 08:06 Diltiazem Hcl 240 Mg Capcr PO 08/04/22 08:59 240 mg QAM GÓMEZ Administration Duloxetine HCl 60 mg 07/05/22 09:00 07/06/22 08:06 Duloxetine Hcl 60 Mg Cap PO 08/04/22 08:59 60 mg QAM GÓMEZ Administration Fluticasone Propionate 2 sprays 07/05/22 09:00 07/05/22 08:27 Fluticasone Propionate Na Spr 16 Gm Btl NA 08/04/22 08:59 2 sprays DAILY GÓMEZ Administration Piperacillin Sod/Tazobactam 115 mls @ 28.75 mls/hr 07/05/22 04:00 07/06/22 07:25 Sod 3.375 gm/ Dextrose IV 07/15/22 03:59 Infused Q8H GÓMEZ Infusion Protocol Pantoprazole Sodium 40 mg/ 10 mls @ 5 mls/min 07/05/22 09:00 07/06/22 08:06 Syringe IV 08/04/22 08:59 5 mls/min BID GÓMEZ Administration Melatonin 3 mg 07/05/22 00:38 07/05/22 00:56 Melatonin 3 Mg Tab PO 08/04/22 00:37 3 mg HS PRN Administration Sleep Spironolactone 25 mg 07/05/22 09:00 07/06/22 08:06 Spironolactone 25 Mg Tab PO 08/04/22 08:59 25 mg DAILY GÓMEZ Administration Past Medical History Medical History Atrial fibrillation CHF (congestive heart failure) CKD (chronic kidney disease) COPD (chronic obstructive pulmonary disease) On home O2 4L Depression Encounter for pre-operative examination GERD (gastroesophageal reflux disease) Hiatal hernia Past Family History Family History Other Cancer Past Surgical History Surgical History H/O neck surgery History of knee replacement History of thyroid surgery Pacemaker Social History Smoking Status: Former smoker Hx Alcohol Use: Yes Alcohol type: beer, wine and hard liquor alcohol intake frequency: a few times a month Hx Substance Use: No substance use type: does not use Physical Exam Vital Signs Last Vital Signs Temp 36.6 C 07/06/22 07:00 Pulse 70 07/06/22 07:00 Resp 16 07/06/22 07:00 BP 161/87 H 07/06/22 07:00 Pulse Ox 95 07/06/22 07:00 O2 Del Method 07/06/22 07:21 O2 Flow Rate 3 07/06/22 07:21 Testing Laboratory Results PT 12.4 Seconds (9.0-12.0) H 07/04/22 20:23 INR 1.2 (0.9-1.1) H 07/04/22 20:23 Blood Type A Positive 07/04/22 23:03 Antibody Screen NEGATIVE 07/04/22 23:03 Electrocardiogram Date: 07/04/22 Test Reason : Blood Pressure : / mmHG Vent. Rate : 073 BPM Atrial Rate : 093 BPM P-R Int : 000 ms QRS Dur : 136 ms QT Int : 438 ms P-R-T Axes : 000 144 208 degrees QTc Int : 482 ms Poor data quality, interpretation may be adversely affected Ventricular-paced rhythm with occasional Premature ventricular complexes Underlying rhythm likely Atrial fibrillation Abnormal ECG When compared with ECG of 04-JUL-2022 21:26, Electronic ventricular pacemaker now present Confirmed by Luis Daniel Munoz ([id number]) on 07/05/2022 8:14:15 AM Chest X-Ray Date: 07/04/22 XR chest 1V portable CLINICAL HISTORY: admission TECHNIQUE: Single frontal radiograph of the chest was obtained. Comparison: Comparison is made to chest radiograph 06/09/2012 FINDINGS: Implanted pacemaker is seen. Cardiomegaly is noted. Prominence and cephalization of the vasculature is seen. No evidence of pleural effusion or pneumothorax. IMPRESSION: Cardiomegaly with mild pulmonary edema. Echocardiogram Date: 07/05/22 EF: 45-50% LV Function: dysfunctional (mild global hypokinesis; mild LVH) RWMA: + none Other Findings: + pertinent finding (severe pulmonary HTN) Valvular Disease: + MR (mod-severe)
[2022-07-06 08:22] LABS: Basophils # (auto) 0.01 K/uL (0-0.2); Basophils % (auto) 0.1 %; Eosinophils % (auto) 2.1 %; Hematocrit (blood only) 27.5 % (40.1-51.0); Hemoglobin 8.5 g/dl (14.0-18.0); Immature Granulocytes # (auto) 0.09 K/uL (0.00-0.02); Immature Granulocytes % (auto) 0.6 %; Lymphocytes # (auto) 0.73 K/uL (1.2-3.4); Mean Corpuscular Hemoglobin 25.5 pg (25.0-34.0); Mean Corpuscular Hgb Conc 30.9 g/dL (32.0-36.0); Mean Corpuscular Volume 82.6 fL (80.0-100.0); Mean Platelet Volume 9.6 fL (9.4-12.4); Monocytes # (auto) 1.31 K/uL (0.24-0.82); Neutrophils # (auto) 12.06 K/uL (1.4-6.5); Neutrophils % (auto) 83.2 %; Nucleated RBC # (auto) 0.04 K/uL (0-0); Nucleated RBC % (auto) 0.3 %; Platelet Count 282 K/uL (130-400); RDW Standard Deviation 50.6 fL (36.4-46.3); Red Blood Count 3.33 M/uL (4.63-6.08)
[2022-07-06 08:36] LABS: BUN Creatinine Ratio 17.8 (10-20); Calcium 7.9 mg/dl (8.5-10.1); Creatinine Clr Calc Pharmacy 31.7 ml/min; Est GFR (African American) 37.9 ml/min; Est GFR (Non-African American) 32.7 ml/min
[2022-07-06] MEDS: BUMETANIDE 1 MG TAB PO SCH (09:31)
[2022-07-06] MEDS: POTASSIUM CHLORIDE / WTR 10 MEQ/100 ML PLCT IV SCH ×4 (11:41→16:44)
[2022-07-06] MEDS: FLUTICASONE PROPIONATE NA SPR 16 GM BTL SCH (11:41)
--- NOTE | 2022-07-06 15:01 | History & Physical Report ---
Date of Service July 06, 2022 Assessment & Plan (1) Anemia: Plan: Pleasant man with anemia who needs EGD. Procedure and risks discussed with patient. he agrees to proceed Admission and Anticipated Discharge Date Admission Date: July 04, 2022 History of Present Illness Chief Complaint: anemia Primary Care Provider: Pepe Selby 82 year old man with significant anemia and black stools, on eliquis. Eliquis last taken three days ago. He is here for EGD Allergies Allergy/AdvReac Type Severity Reaction Status Date / Time TANI Inhibitors AdvReac Mild cough Verified 07/04/22 22:24 Home Medications Medication Instructions Recorded Confirmed Type acetaminophen 500 mg tablet 500 mg PO Q6H PRN Pain 07/04/22 07/04/22 History albuterol sulfate 90 mcg/actuation 2 puff inhalation .Q4-6H PRN 07/04/22 07/04/22 History aerosol inhaler Shortness Of Breath ascorbic acid (vitamin C) 500 mg 500 mg PO DAILY 07/04/22 07/04/22 History tablet bumetanide 2 mg tablet 2 mg PO MOWEFR PRN Fluid Retention 07/04/22 07/04/22 History bumetanide 2 mg tablet 2 mg PO SUTUTHSA 07/04/22 07/04/22 History calcitriol 0.25 mcg capsule 0.25 mcg PO DAILY 07/04/22 07/04/22 History cholecalciferol (vitamin D3) 25 25 mcg PO DAILY 07/04/22 07/04/22 History mcg (1,000 unit) tablet (Vitamin D3) diltiazem HCl 120 mg 120 mg PO HS 07/04/22 07/04/22 History capsule,extended release 24 hr diltiazem HCl 120 mg 240 mg PO QAM 07/04/22 07/04/22 History capsule,extended release 24 hr duloxetine 60 mg capsule,delayed 60 mg PO QAM 07/04/22 07/04/22 History release fluticasone propionate 50 2 spray intranasal DAILY 07/04/22 07/04/22 History mcg/actuation nasal spray,suspension magnesium oxide 800 mg PO BID 07/04/22 07/04/22 History omeprazole 20 mg tablet,delayed 20 mg PO BID 07/04/22 07/04/22 History release potassium chloride 10 mEq 40 meq PO DAILY 07/04/22 07/04/22 History capsule,extended release rivaroxaban 20 mg tablet (Xarelto) 20 mg PO DAILY 07/04/22 07/04/22 History spironolactone 25 mg tablet 25 mg PO DAILY 07/04/22 07/04/22 History Past Med/Surg History Medical History Atrial fibrillation CHF (congestive heart failure) CKD (chronic kidney disease) COPD (chronic obstructive pulmonary disease) On home O2 4L Depression Encounter for pre-operative examination GERD (gastroesophageal reflux disease) Hiatal hernia Surgical History H/O neck surgery History of knee replacement History of thyroid surgery Pacemaker Family History Other Cancer Social History Smoking Status: Former smoker Hx Alcohol Use: Yes Alcohol type: beer, wine and hard liquor Hx Substance Use: No Preferred Language: Greenlandic Communication Ability: Effective Delivery Of Shopping News Required: No Beliefs That Will Affect Care: None marital status: Current Living Situation: Spouse Other Information That Helps Us Care for You: No Feels Safe at Home: Yes Safety Concerns: Feels Safe At This Time Assistive Devices: Cane, Oxygen - Continuous and Walker Review of Systems All systems reviewed & are unremarkable except as noted in HPI & below Physical Exam Constitutional: WD/WN, vitals as above no acute distress Eyes: PERRL, conjunctivae normal, anicteric sclerae ENMT: external ear and nose normal, oropharynx normal Neck: trachea midline, no thyromegaly Respiratory: normal respiratory effort, lungs clear to auscultation Cardiovascular: RRR, no murmur, no edema Gastrointestinal (Abdomen): normal bowel sounds, soft, nontender, no hepatosplenomegaly Musculoskeletal: Extremities: no cyanosis and no clubbing Skin: no rashes, warm and dry Neurologic: PERRL, EOMI, accommodation nl, no face palsy, no dysarthria Psychiatric: Orientation: alert and oriented x 3 ASA Classification ASA ASA3 Results & Data ([facility]) Vital Signs (Past 12 Hours) Vital Signs Temp Pulse Resp BP Pulse Ox O2 Del Method O2 Flow Rate 07/06/22 14:37 36.6 C 70 20 150/80 H 96 Nasal Cannula 4 07/06/22 07:21 Nasal Cannula 3 07/06/22 07:00 36.6 C 70 16 161/87 H 95 Nasal Cannula 3 07/06/22 03:30 36.3 C L 71 18 141/66 H 93 Nasal Cannula 3.0 Code Status & VTE Plan VTE Prophylaxis Plan VTE Prophylaxis will be ordered: Yes
--- NOTE | 2022-07-06 15:29 | Post Operative Brief Note ---
Immediate Post Op Note v1 Date of Surgery July 06, 2022 Pre & Post Diagnosis Operation Date: 07/06/22 16:30 Pre-Op Diagnosis: GI bleed Post-op--normal EGD I identified the patient and participated in the time-out.: Yes Procedure Operation Date: 07/06/22 16:30 <No data on this case meets the specified criteria> Surgeon Junior Avitia Jr, MD Transplant Immunologist none Estimated Blood Loss 0 Findings Consistent with Post-Op Diagnosis Esophagus-normal, no blood seen Stomach-small hiatal hernia, otherwise normal. No blood seen Duodenum-normal Anesthesia Type MAC Complications none Disposition Accompanied Patient To Recovery: No Disposition: Recovery Room Overlapping Procedure I was immediately available: during the entire case.
[2022-07-06] MEDS ORDERED: PROPOFOL IV EMULSION 10 MG/ML 20 ML VIAL IV ONE (15:30)
[2022-07-06] MEDS ORDERED: LIDOCAINE 2% MPF LOCAL 5 ML VIAL INFIL ONE (15:30)
[2022-07-06] MEDS ORDERED: BENZOCAINE/TETRACAIN/BUTAM 50 APPLN/5 GM CAN EXT ONE (15:30)
--- NOTE | 2022-07-06 15:32 | GI REPORT ---
Patient Name: Surjit Hernandez Procedure Date: 07/06/2022 2:43 PM Date of : 1940 Admit Type: Inpatient Age: 82 Gender: Male Attending MD: Junior Avitia MD Procedure: Upper GI endoscopy Providers: Junior Avitia MD Referring MD: Polina Zimmer Do Indications: Iron deficiency anemia, Melena Medicines: Propofol per Anesthesia Complications: No immediate complications. Estimated Blood Loss: Estimated blood loss: none. Procedure: Pre-Anesthesia Assessment: - Prior to the procedure, a History and Physical was performed, and patient medications and allergies were reviewed. The patient's tolerance of previous anesthesia was also reviewed. The risks and benefits of the procedure and the sedation options and risks were discussed with the patient. All questions were answered, and informed consent was obtained. Prior Anticoagulants: The patient has taken Eliquis (apixaban), last dose was 3 days prior to procedure. ASA Grade Assessment: III - A patient with severe systemic disease. After reviewing the risks and benefits, the patient was deemed in satisfactory condition to undergo the procedure. After obtaining informed consent, the endoscope was passed under direct vision. Throughout the procedure, the patient's blood pressure, pulse, and oxygen saturations were monitored continuously. The Endoscope was introduced through the mouth, and advanced to the second part of duodenum. The upper GI endoscopy was accomplished without difficulty. The patient tolerated the procedure well. Findings: The esophagus was normal. The stomach was normal. The examined duodenum was normal. Impression: - Normal esophagus. - Normal stomach. - Normal examined duodenum. - No specimens collected. Recommendation: - Patient has a contact number available for emergencies. The signs and symptoms of potential delayed complications were discussed with the patient. Return to normal activities tomorrow. Written discharge instructions were provided to the patient. - Resume previous diet. - Continue present medications. Junior Avitia MD 07/06/2022 3:31:49 PM Note Initiated On: 07/06/2022 2:43 PM Number of Addenda: 0 I attest to the content of the Intraoperative Record and orders documented therein, exceptions below {[id number]}
--- NOTE | 2022-07-06 17:02 | Anesthesiology Progress Note ---
Date of Service July 06, 2022 Anesthesia Post Procedure Vital Signs Vital Signs: Temp Pulse Pulse Resp BP Pulse Ox O2 Del Method 07/06/22 16:04 70 16 149/72 H 96 Room Air 07/06/22 15:49 73 16 146/68 H 91 Room Air 07/06/22 15:34 70 16 135/58 L 90 Room Air 07/06/22 14:37 97.9 F 70 20 150/80 H 96 Nasal Cannula 07/06/22 07:21 Nasal Cannula 07/06/22 07:00 97.9 F 70 16 161/87 H 95 Nasal Cannula 07/06/22 03:30 97.3 F L 71 18 141/66 H 93 Nasal Cannula 07/05/22 23:11 98.1 F 68 18 144/61 H 93 Nasal Cannula 07/05/22 19:37 Nasal Cannula 07/05/22 19:00 98.4 F 67 17 154/68 H 93 Nasal Cannula 07/05/22 17:30 71 O2 Flow Rate 07/06/22 16:04 07/06/22 15:49 07/06/22 15:34 07/06/22 14:37 4 07/06/22 07:21 3 07/06/22 07:00 3 07/06/22 03:30 3.0 07/05/22 23:11 2.0 07/05/22 19:37 3 07/05/22 19:00 2 07/05/22 17:30 Transfer of Care Handoff Completed per policy Notes Mental Status: alert / awake / arousable and participated in evaluation Patient Amnestic to Procedure: Yes Nausea / Vomiting: adequately controlled Pain: adequately controlled Airway Patency, RR, SpO2: stable & adequate BP & HR: stable & adequate Hydration State: stable & adequate Anesthetic Complications: no major complications apparent and Pt Satisfied with anesthetic care
--- NOTE | 2022-07-06 17:34 | Discharge Summary ---
Date of Service July 06, 2022 Admission HPI Per Admitting Provider 82 year old man with significant anemia and black stools, on eliquis. Eliquis last taken three days ago. He is here for EGD Principal Diagnosis Acute blood loss anemia secondary to GI bleed Discharge Exam Constitutional WD/WN, vitals as above Eyes + anicteric sclerae Neck trachea midline, no thyromegaly Respiratory normal respiratory effort, lungs clear to auscultation Cardiovascular RRR, no murmur, no edema Gastrointestinal (Abdomen) normal bowel sounds, soft, nontender, no hepatosplenomegaly Musculoskeletal Head/Neck/Chest: normocephalic and head atraumatic Skin no rashes, warm and dry Neurologic moves all extremities Psychiatric A+Ox3, euthymic affect Discharge Data Allergies Allergy/AdvReac Type Severity Reaction Status Date / Time TANI Inhibitors AdvReac Mild cough Verified 07/04/22 22:24 Consultations 07/04/22 22:34 Consult Gastroenterology Routine 07/06/22 08:26 HIM [Consult Health Information Management] Routine Procedures Performed Operation Date: 07/06/22 16:30 Actual Procedures p Esophagogastroduodenoscopy - Junior Avitia Jr, MD Hospital Course (1) Anemia: Surjit Hernandez is an 82yo male with history of atrial fibrillation on Xarelto anticoagulation who presented to outside facility with acute hypoxic respiratory failure in setting of removal of home oxygen. Found to have anemia with Hgb of 4.1. Patient does endorse several weeks of black, tarry stools as well as progressive SOB. He was transfused 3u PRBCs at outside facility prior to transfer with adequate response in H/H. Presently 8.1 Patient was transferred here from outside facility for GI consultation status post 3 units packed red blood cells. Patient received an additional unit of packed red blood cells in house. Patient additionally was taken off of his Xarelto. Patient was seen by our gastrointestinal team who recommended an EGD be done to rule out upper GI bleed. EGD returned normal. Hemoglobin has been stable for the past 36 hours without any signs of acute bleeding. For this reason we thought it was safe for him to be discharged. We do recommend that he not start his Xarelto again until 07/12/2022. Additionally patient will need set up for outpatient colonoscopy in 6-8 weeks for recheck. (2) Elevated troponin: HS troponin elevated. Patient denies chest pain. Suspect supply-demand mismatch in setting of hypoxemia, possible CHF -Trend troponin, peaked at 196, no further work-up required -Echo shows: "Ejection fraction of 45 to 50% with mild global hypokinesis with no focal wall motion abnormalities. Moderate left ventricular hypertrophy. Moderately dilated right heart with evidence of right ventricular hypertrophy and preserved systolic function. Mild aortic stenosis/regurgitation. Mild pulmonic insufficiency with normal pulmonary artery end-diastolic pressure. Moderate to severe mitral regurgitation with moderately dilated left atrium. Moderate tricuspid regurgitation with severe pulmonary hypertension and elevated central venous pressure." (3) Diverticulitis: CT of the abdomen obtained at outside facility revealed acute, uncomplicated diverticulitis. Patient denies abdominal pain, vomiting, fever. -Zosyn 3.375gm IV q 8h given in emergency department, no additional antibiotics given due to being asymptomatic making it mild diverticulitis -Patient will need followup colonoscopy in 6-8 weeks (4) Atrial fibrillation: Patient V-paced at 73. On Diltiazem for rate control and Xarelto anticoagulation. -Continue Diltiazem at home dose - 240mg po qAM and 120mg po qHS -Hold Xarelto for now given suspicion for acute bleed -Monitor (5) CHF (congestive heart failure): Patient appears volume overloaded on CXR, elevation of BNP, elevation of troponin possibly secondary to strain as well -Bumex 1mg IV after transfusion and spot dosing IV as needed -Resume oral Bumex at home dose after -Monitor I/Os -Daily weights -Continue Spironolactone -see echo results above (6) COPD (chronic obstructive pulmonary disease): SOB improved, no wheeze -Duonebs given -Continue Albuterol PRN (7) GERD (gastroesophageal reflux disease): Chronic. Patient denies abdominal pain or epigastric discomfort. -Protonix 40mg IV BID given while in house. As long as patient is not bleeding does not require additional Protonix. (8) Depression: Chronic -Continue Duloxetine (9) CKD (chronic kidney disease): Elevation of BUN and Cr. Baseline appx 1.8, improved to baseline prior to discharge -Monitor renal function -Avoid nephrotoxic agents -Renal dosing where needed Code - Full per discussion with patient Dispo -discharge home under self-care Total Time Total Time Spent Total Time Spent (In Minutes): <30 Discharge Plan Discharge Items Patient Disposition: Home - Self-Care Reason For Visit: GI BLEED,DIVERTICULITIS,ELEVATED TROPONIN Discharge Diagnosis: Anemia secondary to GI bleed Activity: Per Instructions section Non-emergency contact: Primary Care Provider and [employer] Trimmer Call non-emergency contact if: you have any medication questions and your symptoms worsen Follow-up/Referrals: Pepe Selby D.O. [Primary Care Provider] - (hospital discharge follow up within 1 week) Diet: Regular Addtl Attending Provider Instructions: You are transferred to this facility for the evaluation of a anemia secondary to a gastrointestinal bleed (Hb 4.1 at outside hospital). You were resuscitated with blood products (3 units at outside hospital and 1 unit here) which increased your hemoglobin values. Your last hemoglobin stayed stable at 8.5. You were evaluated by our gastrointestinal team who performed an EGD (upper endoscopy). The result was normal and no bleeding was found. It is possible for a bleed (such as in the lower GI tract where a scope was not done) to stop on its own. Your blood thinner (Xarelto) will be temporary on-hold. Restart the Xarelto on 07/12/22. Do not take the Xarelto prior to 07/12/22. Please call to make an appointment with your PCP, Dr. Selby, to be seen within 1 week of leaving the hospital. Please ask your PCP to arrange for an outpatient colonoscopy in the next few weeks. This is to look for sources/signs of bleeding in your large intestines (lower GI tract). This may help clarify your risk of rebleeding and assist in determining how closely to repeat labs. Please obtain labwork (blood counts) every 1-2 weeks to ensure that your hemoglobin stays stable. Things to watch out for: Signs/symptoms of bleeding: bloody/dark brown vomit, black/tarry, bloody stool. Feeling dizzy or passing out. Contact your primary doctor; go to emergency room if symptoms severe. Stroke symptoms: facial droop, weakness of a limb, speech slurring, sudden confusion. It is important to visit the emergency room as soon as possible if this happens. The only change to your medications is a temporary pause of your Xarelto until 07/12/22. No other medication has been changed. Follow with your PCP to ensure that you are on the correct medications. Incidental finding: The CT scan at the outside hospital showed diverticulitis. Because you are not symptomatic from this and the severity is presumed mild, you will not be treated with antibiotics for this. If you notice worsening abdominal pain or new fever, please contact your PCP. Pending Studies at Discharge: No Stand-Alone Forms: My [facility] [employer], Smoking Cessation Medications and DC Order Prescriptions: Continued potassium chloride 10 mEq capsule, extended release 40 meq PO DAILY bumetanide 2 mg tablet 2 mg PO SUTUTHSA bumetanide 2 mg tablet 2 mg PO MOWEFR PRN (Reason: Fluid Retention) acetaminophen 500 mg Tablet 500 mg PO Q6H PRN (Reason: Pain) spironolactone 25 mg tablet 25 mg PO DAILY ascorbic acid (vitamin C) 500 mg Tablet 500 mg PO DAILY diltiazem HCl 120 mg capsule,extended release 24hr 120 mg PO HS diltiazem HCl 120 mg capsule,extended release 24hr 240 mg PO QAM albuterol sulfate 90 mcg/actuation HFA aerosol inhaler 2 puff INHALATION .Q4-6H PRN (Reason: Shortness Of Breath) fluticasone propionate 50 mcg/actuation spray,suspension 2 spray INTRANASAL DAILY calcitriol 0.25 mcg capsule 0.25 mcg PO DAILY duloxetine 60 mg capsule,delayed release(DR/EC) 60 mg PO QAM cholecalciferol (vitamin D3) [Vitamin D3] 25 mcg (1,000 unit) Tablet 25 mcg PO DAILY omeprazole 20 mg Tablet,Delayed Release (Dr/Ec) 20 mg PO BID Xarelto 20 mg tablet 20 mg PO DAILY magnesium oxide 400 mg magnesium Tablet 800 mg PO BID Discharge Orders: Discharge Order (Routine); Ordered 07/06/22 Ordered By: Fernie Ron Admission Data Admit Date/Time: 07/04/22 18:44 Attending Provider: Layo Lee Admit Provider: Polina Zimmer Primary Care Provider: Pepe Selby Other Providers: Junior Avitia Jr Other Interventions: Discharge Summary Assessment (RN) Last Done: 07/06/22 17:58 Supervising Physician Co-Signing Physician Notes I personally examined the patient and verified all garcia points of history and exam, discussed case, and agree with decision making with Dr Guilherme COMER noted, feels better and would like to go home. Vitals noted, in general he is awake and alert pleasant no distress. HEENT normocephalic atraumatic mucous membranes moist. Breathing unlabored no accessory muscle use good effort. Skin shows no rashes no pallor or icterus. Neuro without focal deficits. GI bleeding with acute blood loss anemiatransfused 4 unitshemoglobin now stable in the low to mid 8 range. EGD negative. 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 Treated with Lasix. Improved. Likely predominantly high-output related to anemia Myocardial demand ischemiafrom profound anemia. Overall stable. Outpatient follow-up CKD approximately stage IIIboverall stable. Outpatient follow-up Atrial fibrillationrate controlled, hold anticoagulation for now but given stroke risk, likely to resume in the next few weeks with close outpatient follow-up and serial CBCs as an outpatient Otherwise as above, stable for home
--- NOTE | 2022-07-06 18:23 | Billing Data ---
Date of Service July 06, 2022 Coding Level of Care Code D/C DAY MANAGEMENT <30 MINS
--- NOTE | 2022-07-06 18:40 | Hospitalist Progress Note ---
Date of Service July 06, 2022 Assessment & Plan (1) Anemia: Plan: Surjit Hernandez is an 82yo male with history of atrial fibrillation on Xarelto anticoagulation who presented to outside facility with acute hypoxic respiratory failure in setting of removal of home oxygen. Found to have anemia with Hgb of 4.1. Patient does endorse several weeks of black, tarry stools as well as progressive SOB. He was transfused 3u PRBCs at outside facility prior to transfer with adequate response in H/H. Presently 8.1 Patient was transferred here from outside facility for GI consultation status post 3 units packed red blood cells. Patient received an additional unit of packed red blood cells in house. Patient additionally was taken off of his Xarelto. Patient was seen by our gastrointestinal team who recommended an EGD be done to rule out upper GI bleed. EGD returned normal. Hemoglobin has been stable for the past 36 hours without any signs of acute bleeding. For this reason we thought it was safe for him to be discharged. We do recommend that he not start his Xarelto again until 07/12/2022. Additionally patient will need set up for outpatient colonoscopy in 6-8 weeks for recheck. (2) Elevated troponin: Plan: HS troponin elevated. Patient denies chest pain. Suspect supply-demand mismatch in setting of hypoxemia, possible CHF -Trend troponin, peaked at 196, no further work-up required -Echo shows: "Ejection fraction of 45 to 50% with mild global hypokinesis with no focal wall motion abnormalities. Moderate left ventricular hypertrophy. Moderately dilated right heart with evidence of right ventricular hypertrophy and preserved systolic function. Mild aortic stenosis/regurgitation. Mild pulmonic insufficiency with normal pulmonary artery end-diastolic pressure. Moderate to severe mitral regurgitation with moderately dilated left atrium. Moderate tricuspid regurgitation with severe pulmonary hypertension and elevated central venous pressure." (3) Diverticulitis: Plan: CT of the abdomen obtained at outside facility revealed acute, uncomplicated diverticulitis. Patient denies abdominal pain, vomiting, fever. -Zosyn 3.375gm IV q 8h given in emergency department, no additional antibiotics given due to being asymptomatic making it mild diverticulitis -Patient will need followup colonoscopy in 6-8 weeks (4) Atrial fibrillation: Plan: Patient V-paced at 73. On Diltiazem for rate control and Xarelto anticoagulation. -Continue Diltiazem at home dose - 240mg po qAM and 120mg po qHS -Hold Xarelto for now given suspicion for acute bleed -Monitor (5) CHF (congestive heart failure): Plan: Patient appears volume overloaded on CXR, elevation of BNP, elevation of troponin possibly secondary to strain as well -Bumex 1mg IV after transfusion and spot dosing IV as needed -Resume oral Bumex at home dose after -Monitor I/Os -Daily weights -Continue Spironolactone -see echo results above (6) COPD (chronic obstructive pulmonary disease): Plan: SOB improved, no wheeze -Duonebs given -Continue Albuterol PRN (7) GERD (gastroesophageal reflux disease): Plan: Chronic. Patient denies abdominal pain or epigastric discomfort. -Protonix 40mg IV BID given while in house. (8) Depression: Plan: Chronic -Continue Duloxetine (9) CKD (chronic kidney disease): Plan: Elevation of BUN and Cr. Baseline appx 1.8, improved to baseline prior to discharge -Monitor renal function -Avoid nephrotoxic agents -Renal dosing where needed Code - Full per discussion with patient Dispo -discharge home under self-care tomorrow morning Admission and Anticipated Discharge Date Admission Date: July 04, 2022 Supervising Physician Co-Signing Physician Notes I personally examined the patient and verified all garcia points of history and exam, discussed case, and agree with decision making with Dr Guilherme COMER noted, feels better and would like to go home. Vitals noted, in general he is awake and alert pleasant no distress. HEENT normocephalic atraumatic mucous membranes moist. Breathing unlabored no accessory muscle use good effort. Skin shows no rashes no pallor or icterus. Neuro without focal deficits. GI bleeding with acute blood loss anemiatransfused 4 unitshemoglobin now stable in the low to mid 8 range. EGD negative. 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 Treated with Lasix. Improved. Likely predominantly high-output related to anemia Myocardial demand ischemiafrom profound anemia. Overall stable. Outpatient follow-up CKD approximately stage IIIboverall stable. Outpatient follow-up Atrial fibrillationrate controlled, hold anticoagulation for now but given stroke risk, likely to resume in the next few weeks with close outpatient follow-up and serial CBCs as an outpatient Otherwise as above, stable for home Subjective Patient seen at bedside this morning. No acute events reported overnight. Patient was stable for discharge status post EGD today, however, family forgot to bring home portable oxygen therefore discharge was canceled until tomorrow morning. Patient is now on 2 L nasal cannula and room saturating well. No other complaints today. Review of Systems Review of Systems: All systems reviewed & are unremarkable except as noted in HPI & below Physical Exam Constitutional: WD/WN, vitals as above Eyes: + anicteric sclerae Neck: trachea midline, no thyromegaly Respiratory: normal respiratory effort, lungs clear to auscultation Cardiovascular: RRR, no murmur, no edema Gastrointestinal (Abdomen): normal bowel sounds, soft, nontender, no hepatosplenomegaly Musculoskeletal: Head/Neck/Chest: normocephalic and head atraumatic Skin: no rashes, warm and dry Neurologic: moves all extremities Psychiatric: A+Ox3, euthymic affect Results & Data Results & Data ([facility]) Vital Signs (Past 12 Hours) Vital Signs Temp Pulse Resp BP BP Pulse Ox O2 Del Method 07/06/22 17:58 36.5 C 70 16 139/65 149/72 H 96 07/06/22 16:00 36.5 C 79 18 138/74 94 07/06/22 16:04 70 16 149/72 H 96 Room Air 07/06/22 15:49 73 16 146/68 H 91 Room Air 07/06/22 15:34 70 16 135/58 L 90 Room Air 07/06/22 14:37 36.6 C 70 20 150/80 H 96 Nasal Cannula 07/06/22 07:21 Nasal Cannula 07/06/22 07:00 36.6 C 70 16 161/87 H 95 Nasal Cannula O2 Flow Rate 07/06/22 17:58 07/06/22 16:00 07/06/22 16:04 07/06/22 15:49 07/06/22 15:34 07/06/22 14:37 4 07/06/22 07:21 3 07/06/22 07:00 3
--- NOTE | 2022-07-06 19:30 | Billing Data ---
Date of Service July 06, 2022 Coding Level of Care Code 52389 Subseq Hosp Care Lvl 3
[2022-07-06] MEDS: MELATONIN 3 MG TAB PO PRN (20:45)
[2022-07-06] MEDS: dilTIAZem HCL 120 MG CAPCR PO SCH (20:46)
[2022-07-07] MEDS: PIPERACILLIN/TAZOBACTAM 3.375 GM in DEXTROSE 5% 100 ML IV SCH (04:31)
[2022-07-07 05:04] LABS: Basophils # (auto) 0.02 K/uL (0-0.2); Basophils % (auto) 0.2 %; Eosinophils # (auto) 0.36 K/uL (0-0.50); Eosinophils % (auto) 3.7 %; Hematocrit (blood only) 26.9 % (40.1-51.0); Hemoglobin 8.3 g/dl (14.0-18.0); Immature Granulocytes # (auto) 0.08 K/uL (0.00-0.02); Immature Granulocytes % (auto) 0.8 %; Lymphocytes # (auto) 1.01 K/uL (1.2-3.4); Lymphocytes % (auto) 10.4 %; Mean Corpuscular Hemoglobin 25.5 pg (25.0-34.0); Mean Corpuscular Hgb Conc 30.9 g/dL (32.0-36.0); Mean Corpuscular Volume 82.8 fL (80.0-100.0); Mean Platelet Volume 9.1 fL (9.4-12.4); Monocytes # (auto) 1.08 K/uL (0.24-0.82); Monocytes % (auto) 11.1 %; Neutrophils # (auto) 7.17 K/uL (1.4-6.5); Neutrophils % (auto) 73.8 %; Nucleated RBC # (auto) 0.04 K/uL (0-0); Nucleated RBC % (auto) 0.4 %; Platelet Count 260 K/uL (130-400); RDW Coefficient of Variation 18.2 % (11.5-14.5); Red Blood Count 3.25 M/uL (4.63-6.08); White Blood Count 9.72 K/ul (4.8-10.8)
[2022-07-07 05:28] LABS: BUN Creatinine Ratio 13.8 (10-20); Calcium 8.1 mg/dl (8.5-10.1); Creatinine Clr Calc Pharmacy 32.4 ml/min; Est GFR (African American) 38.9 ml/min; Est GFR (Non-African American) 33.6 ml/min; Potassium 3.2 mmol/L (3.5-5.1)
[2022-07-07] MEDS ORDERED: POTASSIUM CHLORIDE CRTAB 20 MEQ TABCR PO STA ×2 (08:40→08:47)
[2022-07-07] MEDS ORDERED: BUMETANIDE 3 MG in SYRINGE 0 ML IV ONE (08:44)
[2022-07-07] MEDS: FLUTICASONE PROPIONATE NA SPR 16 GM BTL SCH (09:19)
[2022-07-07] MEDS: PANTOprazole 40 MG in SYRINGE 0 ML IV SCH (09:19)
[2022-07-07] MEDS: CALCITRIOL 0.25 MCG CAPSULE PO SCH (09:20)
[2022-07-07] MEDS: SPIRONOLACTONE 25 MG TAB PO SCH (09:20)
[2022-07-07] MEDS: dilTIAZem HCL 240 MG CAPCR PO SCH (09:20)
[2022-07-07] MEDS: DULoxetine HCL 60 MG CAP PO SCH (09:20)
--- NOTE | 2022-07-07 09:36 | XRay Report ---
XR chest 1V portable CLINICAL HISTORY: increased o2 req TECHNIQUE: Single frontal radiograph of the chest was obtained. Comparison: Comparison is made to chest radiograph 07/04/2022 FINDINGS: Dual lead pacemaker is seen. Cardiomegaly is noted. The aortic arch is calcified. Prominence and ceph alization of the vasculature is seen. Small bilateral pleural effusions are seen. IMPRESSION: 1. Redemonstration of cardiomegaly with mild pulmonary edema, slightly improved from prior exam. 2. Small bilateral pleural effusions. ACT 112: Negative or not required by law. Electronically signed by: Hans Garibay M.D. 07/07/2022 9:34 AM
--- NOTE | 2022-07-07 17:29 | Billing Data ---
Date of Service July 07, 2022 Coding Level of Care Code D/C DAY MANAGEMENT <30 MINS
== END 2022-07-07 13:12 | disposition home or self-care (01) ==
LOC: SUATTDRO 18:44 → INTOOBSV 18:44 → 2S 18:44